=== PATIENT | female | born 1990 | race Caucasian/White ===

== ENCOUNTER 2020-01-06 17:21 | Emergency (ER) | payer OTHER, MEDICAID, SELFPAY ==
[2020-01-06 17:25] VITALS: BP 139/76; PULSE 80; RESP 12; TEMP 37; O2SAT 98
[2020-01-06 18:03] LABS: Add Manual Diff / Slide Review NO; Basophils Absolute Auto 0 /uL (0-100); Basophils Percent Auto 0.9 % (0-2); Eosinophils Absolute Auto 100 /uL (0-450); Eosinophils Percent Auto 1.6 % (2-4); Hematocrit 38.9 % (36-46); Hemoglobin 13.7 g/dL (12.0-16.0); Lymphocytes Absolute Auto 1800 /uL (1100-4500); Lymphocytes Percent Auto 33.6 % (25-40); Mean Corpuscular HGB Conc 35.4 % (30-36); Mean Corpuscular Hemoglobin 31.5 PG (26-34); Mean Corpuscular Volume 89.1 fL (80-100); Monocytes Absolute Auto 400 /uL (0-900); Monocytes Percent Auto 6.8 % (3-14); Neutrophils Absolute Auto 3200 /uL (1500-7000); Neutrophils Percent Auto 57.1 % (50-75); Platelet Count 188 X10^3/uL (150-400); Red Blood Cell Count 4.36 X10^6/uL (4.0-5.2); Red Cell Distribution Width 12.8 % (11.6-14.8); White Blood Cell Count 5.5 X10^3/uL (4.5-11.0)
[2020-01-06 18:13] LABS: Prothrombin Time 11.6 SECONDS (10.1-12.7)
[2020-01-06 18:16] LABS: PTT Partial Thromboplastin Tim 29 SECONDS (26.4-36.2)
[2020-01-06 18:18] LABS: Alanine Aminotransferase 17 IU/L (<35); Albumin 4.5 g/dL (3.5-5.0); Albumin Globulin Ratio 1.4 (1.0-2.8); Alkaline Phosphatase 25 U/L (38-126); Aspartate Aminotransferase 30 IU/L (14-36); BUN Creatinine Ratio 20.6 (6-22); Bilirubin Total 0.5 mg/dL (0.2-1.3); Blood Urea Nitrogen 14 mg/dL (7-17); Calcium 9.3 mg/dL (8.4-10.2); Carbon Dioxide 23 mmol/L (22-32); Chloride 106 mmol/L (98-107); Estimated Glomerular Filt Rate > 60.0 mL/min (>60); Globulin 3.2 g/dL (1.7-4.1); Glucose 96 mg/dL (70-100); HEMOLYSIS 86 (0-50); Lipase 65 U/L (23-300); Potassium 4.2 mmol/L (3.4-5.1); Sodium 137 mmol/L (137-145); Total Protein 7.7 g/dL (6.3-8.2)
--- NOTE | 2020-01-06 18:29 | DI.US.S_ITS ---
PROCEDURE: US PELVIC COMPLETE INDICATIONS: RLQ PAIN TECHNIQUE: Real-time scanning was performed of the pelvic organs, with image documentation. Additional endovaginal scanning was necessary due to incomplete visualization of the adnexal and endometrial structures by transabdominal scanning. COMPARISON: None. FINDINGS: Transabdominal scanning: Limited scanning through the kidneys shows no hydronephrosis. No pathologic free abdominal or pelvic fluid. Endovaginal scanning: Uterus: Uterus is retroverted in position and normal in size at 7.0 x 5.9 x 6.3 cm. there is a discrete MID posterior myometrial mass measuring 2.2 x 2.2 x 2.4 cm and an anterior myometrial mass measured 1.4 x 0.9 x 1.1 cm. No distortion of the endometrial stripe. The endometrium measures 11.5 mm in combined thickness. Ovaries: Right ovary measures 4.0 x 2.6 x 3.5 cm for a volume of 18.9 cc. There is a an ill-defined central solid component measuring approximately 1.8 cm with increased peripheral vascular flow. Small follicles are peripherally displaced. The left ovary measures 3.2x1.7x1.8 cm for a volume of 5.1 cc. Multiple subcentimeter follicles are also peripherally displaced. The appendix was not identified. No free fluid in the right lower quadrant. IMPRESSION: 1. Fibroid uterus. 2. Mildly enlarged right ovary and multiple subcentimeter peripherally displaced ovarian follicles bilaterally. The findings raise the possibility of polycystic ovarian syndrome but could also be physiologic. Correlate with hormone levels. 3. 1.8 cm right ovarian mass suggestive of an involuting corpus luteum, potentially hemorrhagic. Dictated by: Margarita Ortega M.D. on 01/06/2020 at 20:10 Approved by: Margarita Ortega M.D. on 01/06/2020 at 20:16
--- NOTE | 2020-01-06 18:31 | ED.ABDPAIN ---
HPI - Abdominal Pain <CINTHIA Nobles - Last Filed: 01/06/20 21:45> General Chief Complaint: Abdominal Pain Stated Complaint: Abd Pain Time Seen by Provider: 01/06/20 17:47 Source: patient Mode of arrival: Ambulatory Limitations: no limitations History of Present Illness HPI narrative: 29yo healthy female presents emergency department complaining of dull aching right lower quadrant pain for the past week. She was seen in the clinic on [address] yesterday, she had lab work drawn which was non-remarkable. However she noticed that the pain was slowly increasing today. She describes it as a 4-10 dull aching right-sided pain. She denies any fevers, chills, nausea, vomiting, diarrhea, chest pain, shortness of breath, cough, or any other concerns. She denies any dysuria or vaginal discharge, patient denies any concerns for STDs. She denies any history of renal calculi or ovarian cyst. She states she is due for her menstrual cycle. She states she noted last month she had a small amount of similar pain before her menstrual period. Patient states she has a history of chronic low back pain which has been exacerbated as she has been painting her house. She states this is not unusual. Denies significant flank pain. Related Data Home Medications Medication Instructions Recorded Confirmed bupropion HCl 150 mg PO DAILY 01/06/20 01/06/20 Allergies Allergy/AdvReac Type Severity Reaction Status Date / Time No Known Drug Allergies Allergy Verified 01/06/20 18:16 Review of Systems <CINTHIA Nobles - Last Filed: 01/06/20 21:45> Review of Systems Narrative: REVIEW OF SYSTEMS: GENERAL: Denies fever, chills, malaise, or wt. loss. HENT: No head trauma, sore throat, or dysphagia. EYES: No vision changes. CARDIOVASCULAR: No chest pain, palpitations, or orthopnea. RESPIRATORY: No shortness of breath or cough. GASTROINTESTINAL: Complains of right lower quadrant abdominal pain, see HPI GENITOURINARY: No flank pain, urinary incontinence, hesitancy, frequency, or dysuria. No vaginal discharge or dyspareunia. Denies concerns for STIs MUSCULOSKELETAL: No pain, weakness, or trauma. INTEGUMENTARY: No rash, lesions, or pruritus. NEURO: No headaches. PSYCH: No behavior or mood changes. Patient History <CINTHIA Nobles - Last Filed: 01/06/20 21:45> Medical History (Updated 01/06/20 @ 21:10 by CINTHIA Nobles) Anxiety (Acute) Social History Smoking Status: Former smoker Smoking Status: Former smoker alcohol intake frequency: 0-2 drinks per day Substance Use Type: does not use Exam <CINTHIA Nobles - Last Filed: 01/06/20 21:45> Initial Vital Signs Initial Vital Signs: Vital Signs Temperature 98.6 F 01/06/20 17:25 Pulse Rate 80 01/06/20 17:25 Respiratory Rate 12 01/06/20 17:25 Blood Pressure 139/76 01/06/20 17:25 Pulse Oximetry 98 01/06/20 17:25 PHYSICAL EXAMINATION: GENERAL: Well groomed, alert, and cooperative. Answers questions promptly and appropriately. Vital signs noted. HENT: Normocephalic, atraumatic. Hearing intact. Oral mucosa is pink and moist. EYES: Conjunctiva pink, sclera white, no periorbital swelling. CARDIOVASCULAR: S1 and S2 sounds normal. Regular rate and rhythm, no murmurs, clicks, or bruits. No pedal edema. RESPIRATORY: Normal respiratory rate, trachea midline, airway patent. No stridor, nasal flaring or accessory muscle use. Lungs are clear in all thapa without wheeze, rhonchi, or crackles. GASTROINTESTINAL: Bowel sounds normoactive. Abdomen is soft, mild right lower quadrant tenderness. No rebound tenderness. No increased pain with flexion or extension of right leg. No organomegaly, no palpable masses. GENITALURINARY: No flank tenderness. MUSCULOSKELETAL: Normal gait and coordination. Equal tone and mass bilaterally. EXTREMITIES: CMS intact, no pedal edema. SKIN: Warm, dry, soft, appropriate color for ethnicity. No lesions, rashes, or wounds to visualized areas. NEURO: Alert and Oriented X 3. Good coordination. No ataxia, or sensory deficits, or cognitive issues. PSYCH: Appropriate affect and mood. <William Gonzalez DO - Last Filed: 01/06/20 21:54> Initial Vital Signs Initial Vital Signs: Vital Signs Temperature 98.6 F 01/06/20 17:25 Pulse Rate 80 01/06/20 17:25 Respiratory Rate 12 01/06/20 17:25 Blood Pressure 139/76 01/06/20 17:25 Pulse Oximetry 98 01/06/20 17:25 Course <CINTHIA Nobles - Last Filed: 01/06/20 21:45> Orders Ordered: ED Orders 01/06/20 17:57 Complete Blood Count AUTO DIFF Stat Comprehensive Metabolic Panel Stat Lipase Stat Partial Thromboplastin Time Stat Prothrombin Time INR Stat 01/06/20 18:29 US pelvic complete Stat Vital Signs Vital signs: Vital Signs - 8 hr 01/06/20 17:25 01/06/20 19:57 01/06/20 21:43 Temperature 98.6 F 97.5 F L Pulse Rate 80 62 Respiratory Rate 12 20 Blood Pressure 139/76 124/70 Blood Pressure [Left Arm] 139/74 Pulse Oximetry 98 100 <William Gonzalez DO - Last Filed: 01/06/20 21:54> Orders Ordered: ED Orders 01/06/20 17:57 Complete Blood Count AUTO DIFF Stat Comprehensive Metabolic Panel Stat Lipase Stat Partial Thromboplastin Time Stat Prothrombin Time INR Stat 01/06/20 18:29 US pelvic complete Stat Vital Signs Vital signs: Vital Signs - 8 hr 01/06/20 17:25 01/06/20 19:57 01/06/20 21:43 Temperature 98.6 F 97.5 F L Pulse Rate 80 62 Respiratory Rate 12 20 Blood Pressure 139/76 124/70 Blood Pressure [Left Arm] 139/74 Pulse Oximetry 98 100 MDM - Abdominal Pain <Kely CINTHIA Adair - Last Filed: 01/06/20 21:45> Medical Records Attestation: I reviewed the patient's medical records. Lab Data Attestation: I reviewed the patient's lab results. Result diagrams: 01/06/20 17:57 01/06/20 17:57 Labs: Lab Results 01/06/20 01/06/20 01/06/20 Range/Units 17:57 17:57 17:57 WBC 5.5 (4.5-11.0) X10^3/uL RBC 4.36 (4.0-5.2) X10^6/uL Hgb 13.7 (12.0-16.0) g/dL Hct 38.9 (36-46) % MCV 89.1 (80-100) fL MCH 31.5 (26-34) PG MCHC 35.4 (30-36) % RDW 12.8 (11.6-14.8) % Plt Count 188 (150-400) X10^3/uL Neut % (Auto) 57.1 (50-75) % Lymph % (Auto) 33.6 (25-40) % [place] % (Auto) 6.8 (3-14) % Eos % (Auto) 1.6 L (2-4) % Baso % (Auto) 0.9 (0-2) % Neut # (Auto) 3200 (9135-9141) /uL Lymph # (Auto) 1800 (6910-9801) /uL [place] # (Auto) 400 (0-900) /uL Eos # (Auto) 100 (0-450) /uL Baso # (Auto) 0 (0-100) /uL PT 11.6 (10.1-12.7) SECONDS INR 1.0 (0.9-1.3) APTT 29 (26.4-36.2) SECONDS Sodium 137 (137-145) mmol/L Potassium 4.2 (3.4-5.1) mmol/L Chloride 106 (98-107) mmol/L Carbon Dioxide 23 (22-32) mmol/L BUN 14 (7-17) mg/dL Creatinine 0.68 (0.52-1.04) mg/dL Estimated GFR > 60.0 (>60) mL/min BUN/Creatinine Ratio 20.6 (6-22) Glucose 96 (70-100) mg/dL Calcium 9.3 (8.4-10.2) mg/dL Total Bilirubin 0.5 (0.2-1.3) mg/dL AST 30 (14-36) IU/L ALT 17 (<35) IU/L Alkaline Phosphatase 25 L (38-126) U/L Total Protein 7.7 (6.3-8.2) g/dL Albumin 4.5 (3.5-5.0) g/dL Globulin 3.2 (1.7-4.1) g/dL Albumin/Globulin Ratio 1.4 (1.0-2.8) Lipase 65 (23-300) U/L Point of care testing: Point of Care Testing Test Results Negative Urine Dip Bedside Urine Glucose Negative Bedside Urine Bilirubin - Negative Bedside Urine Ketone - Negative Urine Specific [place]anchard 1.025 Bedside Urine Occult Blood - Negative Bedside Urine pH 6.0 Bedside Urine Protein - Negative Bedside Urine Urobilinogen - Negative Bedside Urine Nitrite - Negative Bedside Urine Leukocytes - Negative Esterase Imaging Data 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 Additional endovaginal scanning was necessary due to incomplete visualization of the adnexal and endometrial structures by transabdominal scanning. COMPARISON: None. FINDINGS: Transabdominal scanning: Limited scanning through the kidneys shows no hydronephrosis. No pathologic free abdominal or pelvic fluid. Endovaginal scanning: Uterus: Uterus is retroverted in position and normal in size at 7.0 x 5.9 x 6.3 cm. there is a discrete MID posterior myometrial mass measuring 2.2 x 2.2 x 2.4 cm and an anterior myometrial mass measured 1.4 x 0.9 x 1.1 cm. No distortion of the endometrial stripe. The endometrium measures 11.5 mm in combined thickness. Ovaries: Right ovary measures 4.0 x 2.6 x 3.5 cm for a volume of 18.9 cc. There is a an ill-defined central solid component measuring approximately 1.8 cm with increased peripheral vascular flow. Small follicles are peripherally displaced. The left ovary measures 3.2x1.7x1.8 cm for a volume of 5.1 cc. Multiple subcentimeter follicles are also peripherally displaced. The appendix was not identified. No free fluid in the right lower quadrant. IMPRESSION: 1. Fibroid uterus. 2. Mildly enlarged right ovary and multiple subcentimeter peripherally displaced ovarian follicles bilaterally. The findings raise the possibility of polycystic ovarian syndrome but could also be physiologic. Correlate with hormone levels. 3. 1.8 cm right ovarian mass suggestive of an involuting corpus luteum, potentially hemorrhagic. Dictated by: Margarita Ortega M.D. on 01/06/2020 at 20:10 Approved by: Margarita Ortega M.D. on 01/06/2020 at 20:16 [facility] Narrative Medical decision making narrative: 29-year-old healthy female reporting intermittent right lower quadrant abdominal pain over the past week. I suspect patient's pain is most likely caused by the ovarian cyst seen on ultrasound. Differential also includes but less likely appendicitis, appendix was not visualized on ultrasound however, patient does not have any other symptoms such as severe pain, rebound tenderness, nausea, vomiting, leukocytosis, or other systemic symptoms such as fever. Symptoms have been ongoing for the past week and I suspect at this time if it were appendicitis abnormalities would be seen on laboratory work. Less likely gastroenteritis due to lack of other symptoms. Patient was encouraged to follow up with her primary care provider for further evaluation, she was also given a sports management internship referral if she chooses to be seen by a specialist. I discussed with patient that many of these cysts resolved on their own however, follow-up was a good idea if she continues to have irritation and pain. Patient requested to record the conversation about test results, this was okayed by myself. Patient was encouraged to return emergency department for any new or worsening symptoms especially fever vomiting. Patient agreed to plan of care verbalized understanding. <William Gonzalez, DO - Last Filed: 01/06/20 21:54> Lab Data Labs: Lab Results 01/06/20 01/06/20 01/06/20 Range/Units 17:57 17:57 17:57 WBC 5.5 (4.5-11.0) X10^3/uL RBC 4.36 (4.0-5.2) X10^6/uL Hgb 13.7 (12.0-16.0) g/dL Hct 38.9 (36-46) % MCV 89.1 (80-100) fL MCH 31.5 (26-34) PG MCHC 35.4 (30-36) % RDW 12.8 (11.6-14.8) % Plt Count 188 (150-400) X10^3/uL Neut % (Auto) 57.1 (50-75) % Lymph % (Auto) 33.6 (25-40) % [place] % (Auto) 6.8 (3-14) % Eos % (Auto) 1.6 L (2-4) % Baso % (Auto) 0.9 (0-2) % Neut # (Auto) 3200 (9928-7083) /uL Lymph # (Auto) 1800 (6168-9872) /uL [place] # (Auto) 400 (0-900) /uL Eos # (Auto) 100 (0-450) /uL Baso # (Auto) 0 (0-100) /uL PT 11.6 (10.1-12.7) SECONDS INR 1.0 (0.9-1.3) APTT 29 (26.4-36.2) SECONDS Sodium 137 (137-145) mmol/L Potassium 4.2 (3.4-5.1) mmol/L Chloride 106 (98-107) mmol/L Carbon Dioxide 23 (22-32) mmol/L BUN 14 (7-17) mg/dL Creatinine 0.68 (0.52-1.04) mg/dL Estimated GFR > 60.0 (>60) mL/min BUN/Creatinine Ratio 20.6 (6-22) Glucose 96 (70-100) mg/dL Calcium 9.3 (8.4-10.2) mg/dL Total Bilirubin 0.5 (0.2-1.3) mg/dL AST 30 (14-36) IU/L ALT 17 (<35) IU/L Alkaline Phosphatase 25 L (38-126) U/L Total Protein 7.7 (6.3-8.2) g/dL Albumin 4.5 (3.5-5.0) g/dL Globulin 3.2 (1.7-4.1) g/dL Albumin/Globulin Ratio 1.4 (1.0-2.8) Lipase 65 (23-300) U/L Point of care testing: Point of Care Testing Test Results Negative Urine Dip Bedside Urine Glucose Negative Bedside Urine Bilirubin - Negative Bedside Urine Ketone - Negative Urine Specific [place] 1.025 Bedside Urine Occult Blood - Negative Bedside Urine pH 6.0 Bedside Urine Protein - Negative Bedside Urine Urobilinogen - Negative Bedside Urine Nitrite - Negative Bedside Urine Leukocytes - Negative Esterase Discharge Plan Departure Patient Disposition: Home Clinical Impression: Ovarian cyst Qualifiers: Laterality: right Qualified Code(s): N83.201 - Unspecified ovarian cyst, right side Discharge Date/Time: 04/25/20 21:21 Instructions: DI for Ovarian Cyst Activity Restrictions/Additional Instructions: Thank you for entrusting me with your care today. As discussed, your ultrasound shows an ovarian cyst. Below are the test results: IMPRESSION: 1. Fibroid uterus. 2. Mildly enlarged right ovary and multiple subcentimeter peripherally displaced ovarian follicles bilaterally. The findings raise the possibility of polycystic ovarian syndrome but could also be physiologic. Correlate with hormone levels. 3. 1.8 cm right ovarian mass suggestive of an involuting corpus luteum, potentially hemorrhagic. I recommend following up with your primary care provider in the next 2-4 weeks or the listed OB below for further evaluation if your symptoms continue. Most of the time ovarian cyst resolve on their own. Take ibuprofen as needed for pain. The chances are low that you have appendicitis, however if you develop any new or worsening symptoms such as uncontrollable vomiting, fevers, worsening pain, or any other concerns please return emergency department. Prescriptions: No Action bupropion HCl 150 mg tablet extended release 24 hr 150 mg PO DAILY RF: 0 Referrals: Clemencia Leslie MD [Physician] - Jade Louis ARNP [Primary Care Provider] - <William Gonzalez DO - Last Filed: 01/06/20 21:54> Cosign ED Attending Cosignature Attestation: Dr Gonzalez Co-Sign Statement: I was available for consultation during this patient's emergency department visit. This chart is signed by myself for administrative purposes only. I did not have direct contact with this patient during this visit. They were seen independently by the APC.
[2020-01-06 19:57] VITALS: BP 139/74
[2020-01-06 21:43] VITALS: BP 124/70; PULSE 62; RESP 20; TEMP 36.4; O2SAT 100
== END 2020-01-06 21:21 | disposition home or self-care (01) ==
PROVIDERS: Emergency Medicine; Emergency Provider Nurse Practitioner; Family Provider Family Medicine; PCP Nurse Practitioner Family
DX: N83.201 Unspecified ovarian cyst, right side (principal)
CPT/HCPCS: 36415; 76830; 76856; 80053; 81003; 81025; 83690; 85025; 85610; 85730; 99284